=== PATIENT | male | born 1945 | race Caucasian/White ===

== ENCOUNTER → 2017-03-16 | Outpatient (CLI) | payer OTHER ==
[~2017-03-16] MED LIST: AMITRYPTYLINE PO; ASPIRIN PO; ATIVAN PO; DARVOCET-N 1001 TAB PO; FLOMAX0.4 MG PO; KCL PO; LACTULOSE; LISINOPRIL PO; NASALIDE25 ML; NORVASC PO; OSTEO BIFLEX; PROSCAR5 MG PO; PROTONIX PO; ROBAXIN PO; TOPROL XL PO; ZOCOR PO
--- NOTE | ~2017-03-16 | CR7 ---
[facility] A Service of [facility] RADIOLOGY TEXT RESULTS PATIENT: YURIDIA ARANA LOCATION: [facility] : 49 UNIT #: [id number] AGE: [address]: Ye Gomez MD SEX: M ORDER DR: [id number] [facility] [address] [place], [place] [address] [id number] O MR#: [id number] Acc #: [id number] NAME: YURIDIA ARANA : 1945 SEX: M STUDY DATE/TIME: 03/16/2017 14:24 UNIT: [facility] ROOM: STUDY DESCRIPTION: CR Abdomen Single AP View Attending Physician: Ye Gomez M.D. Ordering Physician: Ye Gomez M.D. Primary Care Physician: Leland Farr M.D. MEDICAL IMAGING REPORT This report is preliminary unless electronic signature is present EXAM Abdomen single view, 03/16/2017 14:24 hours HISTORY 71-year-old man with history of renal calculus for followup. Stones have been present for several years. No acute abdominal complaints. COMPARISON 03/21/2016 FINDINGS Single supine view of the abdomen again demonstrates a calcification in the right mid abdomen measuring up to 10.0 mm, slightly increased from 8.0 mm previously. There is a small calcification projecting over the lower pole right kidney measuring 6.0 mm with partial obscuration by stool. No definite calcifications are seen on the left. No ureteral calcifications. Surgical clips are present in the epigastrium without change. IMPRESSION There is a 10.0 mm calculus in the right mid abdomen, previously 8.0 mm on 03/21/2016. There is a 6.0 mm calcification over the lower pole right kidney which appears slightly increased as well. No definite left renal stones. No ureteral calculi seen. Dictated by... Sharmila Don M.D. THIS IS AN ELECTRONICALLY VERIFIED REPORT Sharmila Don M.D. at 03/17/2017 5:18 PM AKUA/magda TD: 03/17/2017 16:05 JOB #: [id number] [facility] A Service of [facility] RADIOLOGY TEXT RESULTS PATIENT: YURIDIA ARANA LOCATION: [facility] #: [id number] : 49 UNIT #: [id number] AGE: [address]: Ye Gomez MD SEX: M ORDER DR: MEDICAL IMAGING REPORT Page 1 of 1 COPY
== END | disposition home or self-care (01) ==
LOC: CRAD 14:12
DX: N20.0 Calculus of kidney (principal); N28.89 Other specified disorders of kidney and ureter
CPT/HCPCS: 74000